=== PATIENT | female | born 1985 | race Caucasian/White ===

== ENCOUNTER 2023-03-09 02:56 | Emergency (ER) | payer OTHER, SELFPAY ==
[2023-03-09 03:14] VITALS: BP 147/98; PULSE 111; RESP 20; TEMP 36.5; O2SAT 99; BMI 73.4
[2023-03-09] MEDS: Ondansetron ODT 8 MG TAB.RAPDIS TRANSLINGU (03:22)
--- NOTE | 2023-03-09 03:23 | PC.NURSE ---
Medicated per mar
== END 2023-03-09 04:58 | disposition left against medical advice (07) ==
PROVIDERS: Emergency Provider Emergency Medicine; PCP Family Medicine
DX: E86.0 Dehydration (principal); R11.2 Nausea with vomiting, unspecified
CPT/HCPCS: 99281; 99283